=== PATIENT | female | born 1985 | race Caucasian/White ===

== ENCOUNTER 2017-12-24 07:42 | Emergency (ER) | payer OTHER ==
[~2017-12-24] VITALS: Ht 172.7 cm; Wt 70.3 kg
[2017-12-24] MEDS ORDERED: ATARAX25 MG PO (10:23)
[2017-12-24] MEDS ORDERED: ZYRTEC10 M3 PO (10:23)
== END 2017-12-24 10:45 | disposition home or self-care (01) ==
LOC: ER 07:42
DX: T78.49XA Other allergy, initial encounter (principal); R21 Rash and other nonspecific skin eruption

== ENCOUNTER 2018-08-26 03:45 | Inpatient (IN) | payer OTHER ==
[~2018-08-26] VITALS: Ht 172.7 cm; Wt 85.7 kg
[~2018-08-26 03:45] MED LIST: ATARAX25 MG PO; ZYRTEC10 M3 PO
[2018-08-26] MEDS ORDERED: PRENATAL 19 TA1 EACH PO (04:08)
[2018-08-27] MEDS ORDERED: KEFLEX500 MG PO (12:39)
== END 2018-08-27 16:19 | disposition home or self-care (01) | DRG 832 ==
LOC: LDR 03:45 → OB/GYN 03:45
PROVIDERS: ADMIT Obstetrics & Gynecology
PROC: BY4FZZZ Ultrasonography of Third Trimester, Single Fetus (ICD-10-PCS; principal; 2018-08-26)
PROC: 4A1HXCZ Monitoring of Products of Conception, Cardiac Rate, External Approach (ICD-10-PCS; 2018-08-26)
DX: O47.03 False labor before 37 completed weeks of gestation, third trimester (principal); O23.33 Infections of other parts of urinary tract in pregnancy, third trimester; Z34.83 Encounter for supervision of other normal pregnancy, third trimester

== ENCOUNTER 2018-10-29 15:03 | Inpatient (IN) | payer OTHER ==
[~2018-10-29] VITALS: Ht 172.7 cm; Wt 4.1 kg
[~2018-10-29 15:03] MED LIST changes: +KEFLEX500 MG PO; +PRENATAL 19 TA1 EACH PO
[2018-10-29] MEDS ORDERED: IRON 100 PLUS1 EACH PO (17:13)
[2018-11-01] MEDS ORDERED: GAS RELIEF125 MG PO (13:23)
[2018-11-01] MEDS ORDERED: PERCOCET 5-3251 EACH PO (13:23)
[2018-11-01] MEDS ORDERED: COLACE100 MG PO (13:23)
== END 2018-11-01 14:46 | disposition home or self-care (01) | DRG 788 ==
LOC: OB/GYN 15:03 → LDR 15:03 → OB/GYN 19:28
PROVIDERS: ADMIT Obstetrics & Gynecology
PROC: 4A1HXCZ Monitoring of Products of Conception, Cardiac Rate, External Approach (ICD-10-PCS; 2018-10-29)
PROC: 10D00Z1 Extraction of Products of Conception, Low, Open Approach (ICD-10-PCS; principal; 2018-10-29 17:00)
DX: O82 Encounter for cesarean delivery without indication (principal); O64.8XX0 Obstructed labor due to other malposition and malpresentation, not applicable or unspecified; Z3A.40 40 weeks gestation of pregnancy; Z37.0 Single live birth

== ENCOUNTER 2020-12-03 18:31 | Emergency (ER) | payer OTHER ==
[~2020-12-03] VITALS: Ht 170.2 cm; Wt 89.8 kg
[~2020-12-03 18:31] MED LIST changes: +COLACE100 MG PO; +GAS RELIEF125 MG PO; +IRON 100 PLUS1 EACH PO; +PERCOCET 5-3251 EACH PO
[2020-12-04] MEDS ORDERED: ORPHENADRINE C100 MG PO (00:48)
[2020-12-04] MEDS ORDERED: MEDROLPACK PO (00:48)
== END 2020-12-04 01:07 ==
LOC: ER 18:31
DX: R07.89 Other chest pain (principal)

== ENCOUNTER 2025-03-30 19:01 | Emergency (ER) | payer OTHER ==
[~2025-03-30] VITALS: Ht 170.2 cm; Wt 74.8 kg
[~2025-03-30 19:01] MED LIST changes: +MEDROLPACK PO; +ORPHENADRINE C100 MG PO
[2025-03-30] MEDS ORDERED: DEXAMETHASONE SODIUM PHOSPHATE 4 MG/ML VIAL IM ONE (21:30)
[2025-03-30] MEDS ORDERED: 8 HOUR650 MG PO (21:38)
== END 2025-03-30 22:50 | disposition home or self-care (01) ==
LOC: ER 19:02
DX: G56.03 Carpal tunnel syndrome, bilateral upper limbs (principal); D68.09 Other von Willebrand disease; Z88.6 Allergy status to analgesic agent; Z88.8 Allergy status to other drugs, medicaments and biological substances